=== PATIENT | male | born 1995 | race Hispanic/Latino ===

== ENCOUNTER 2020-08-15 21:01 | Emergency (ER) | payer SELFPAY ==
[~2020-08-15] VITALS: Ht 170.2 cm; Wt 69.4 kg
[2020-08-15] MEDS ORDERED: IBUPROFEN 600 MG TAB PO STA (21:55)
[2020-08-15] MEDS ORDERED: IBUPROFEN600 MG PO (21:57)
[2020-08-15] MEDS ORDERED: CLARITIN-D 121 EACH PO (21:58)
[2020-08-15] MEDS ORDERED: FLONASE ALLERG9.9 ML INH (21:59)
[2020-08-15 22:05] VITALS: BP 126/73
[2020-08-15] MEDS ORDERED: IBUPROFEN 600 MG TAB ONE (22:07)
== END 2020-08-15 22:05 | disposition home or self-care (01) ==
LOC: FSED 21:10
DX: R05 Cough (principal); J06.9 Acute upper respiratory infection, unspecified; B34.9 Viral infection, unspecified; F17.210 Nicotine dependence, cigarettes, uncomplicated
CPT/HCPCS: 83518; 87400; 99283